=== PATIENT | female | born 1980 | race Caucasian/White ===

== ENCOUNTER 2016-11-17 21:47 | Emergency (ER) | payer BC ==
[~2016-11-17] VITALS: Ht 170.2 cm; Wt 99.4 kg
[2016-11-17 23:26] LABS: HEMATOCRIT 38.1 % (36.0-46.0); MCH 30.5 PG (29.0-34.0); MCHC 34.1 G/DL (30.0-36.0); MCV 89.4 FL (83-99); MEAN PLAT.VOLUME 10.8 uM^3 (9.5-12.4); PLATELET COUNT 189 K/uL (156-360); RBC DIS.WIDTH-CV 12.1 % (11.8-14.6); RBC DIS.WIDTH-SD 39.7 % (39-53); RED BLOOD COUNT 4.26 M/uL (3.80-5.20); WHITE BLOOD COUNT 7.2 K/uL (4.1-10.2)
[2016-11-17 23:38] LABS: CHLORIDE 105 mEq/L (99-109); POTASSIUM 3.6 mEq/L (3.7-5.4); SODIUM 140 mEq/L (136-147)
[2016-11-17 23:40] LABS: GLUCOSE 96 mg/dL (70-99)
[2016-11-17 23:41] LABS: ANION GAP 9 MEQ/L (2-14)
[2016-11-17 23:43] LABS: GFR ESTIMATE (CALCULATED) > 59 mL/min/
[2016-11-17 23:44] LABS: UREA NITROGEN (BUN) 14 mg/dL (9-23)
[2016-11-17 23:49] LABS: ADD MIUA? YES; BILIRUBIN NEGATIVE; BLOOD LARGE; COLOR YELLOW ((YELLOW)); GLUCOSE (STRIP) NEGATIVE; KETONES NEGATIVE; LEUKOCYTES NEGATIVE; NITRITE NEGATIVE; PROTEIN (STRIP) 30; SPECIFIC GRAVITY 1.017 (1.000-1.030); UROBILINOGEN 0.2 MG/DL (0.2-1.0)
[2016-11-18 00:04] LABS: BACTERIA 1+ /HPF; EPITHELIAL CELLS 1+ /HPF; MUCUS 1+ /LPF; RED BLOOD CELLS TNTC /HPF (0-5); UCUL ADDED? YES
[2016-11-18] MEDS ORDERED: FLOMAX0.4 MG PO (00:36)
[2016-11-18] MEDS ORDERED: PERCOCET 5/31 TABLET PO (00:36)
[2016-11-18] MEDS ORDERED: KEFLEX500 MG PO (00:36)
[2016-11-18 01:09] VITALS: BP 145/87
== END 2016-11-18 01:09 | disposition home or self-care (01) ==
LOC: EXP 21:47 → EME 21:47 → EXP 11-18 01:09
DX: N20.0 Calculus of kidney (principal); N39.0 Urinary tract infection, site not specified; R31.9 Hematuria, unspecified; F17.200 Nicotine dependence, unspecified, uncomplicated
CPT/HCPCS: 74176; 80048; 81003; 85027; 99281; 99284; J1885

== ENCOUNTER 2016-11-21 17:36 | Emergency (ER) | payer BC ==
[~2016-11-21] VITALS: Ht 170.2 cm; Wt 98.5 kg
[~2016-11-21 17:36] MED LIST: FLOMAX0.4 MG PO; KEFLEX500 MG PO; PERCOCET 5/31 TABLET PO
[2016-11-21 19:00] LABS: HEMATOCRIT 39.2 % (36.0-46.0); MCH 30.9 PG (29.0-34.0); MCHC 35.2 G/DL (30.0-36.0); MCV 87.7 FL (83-99); MEAN PLAT.VOLUME 10.7 uM^3 (9.5-12.4); PLATELET COUNT 165 K/uL (156-360); RBC DIS.WIDTH-CV 11.8 % (11.8-14.6); RED BLOOD COUNT 4.47 M/uL (3.80-5.20); WHITE BLOOD COUNT 9.9 K/uL (4.1-10.2)
[2016-11-21 19:13] LABS: CHLORIDE 104 mEq/L (99-109); SODIUM 137 mEq/L (136-147)
[2016-11-21 19:14] LABS: GLUCOSE 76 mg/dL (70-99)
[2016-11-21 19:16] LABS: ANION GAP 11 MEQ/L (2-14)
[2016-11-21 19:18] LABS: GFR ESTIMATE (CALCULATED) > 59 mL/min/
[2016-11-21 19:19] LABS: UREA NITROGEN (BUN) 12 mg/dL (9-23)
[2016-11-21 20:14] LABS: ADD MIUA? YES; BILIRUBIN NEGATIVE; BLOOD LARGE; COLOR YELLOW ((YELLOW)); GLUCOSE (STRIP) NEGATIVE; KETONES 80; LEUKOCYTES NEGATIVE; NITRITE NEGATIVE; PROTEIN (STRIP) 100; SPECIFIC GRAVITY 1.026 (1.000-1.030); UROBILINOGEN 0.2 MG/DL (0.2-1.0)
[2016-11-21 20:28] LABS: BACTERIA 1+ /HPF; EPITHELIAL CELLS 3+ /HPF; MUCUS NONE SEEN /LPF; RED BLOOD CELLS TNTC /HPF (0-5); UCUL ADDED? YES; WHITE BLOOD CELLS 0-5 /HPF (0-5)
[2016-11-21] MEDS ORDERED: PERCOCET 5/31 TABLET PO (21:00)
[2016-11-21] MEDS ORDERED: PHENERGAN25 MG PR (21:01)
[2016-11-21 21:23] VITALS: BP 117/63
== END 2016-11-21 21:24 | disposition home or self-care (01) ==
LOC: EME 17:36
DX: N20.0 Calculus of kidney (principal); G89.18 Other acute postprocedural pain; R11.2 Nausea with vomiting, unspecified; F17.200 Nicotine dependence, unspecified, uncomplicated; Z87.442 Personal history of urinary calculi
CPT/HCPCS: 74000; 80048; 81003; 85027; 87086; 99281; 99283; J1885; J2405; J7030

== ENCOUNTER 2016-12-27 09:13 | Day surgery (SDC) | payer BC ==
[~2016-12-27] VITALS: Ht 170.2 cm; Wt 95.2 kg
[~2016-12-27 09:13] MED LIST changes: +ANTIBIOTIC FOR UTI PO; +PHENERGAN25 MG PR; +RAPAFLO8 MG PO
[2016-12-27] MEDS ORDERED: BACTRIM,SEPT1 TABLET PO (09:48)
[2016-12-27 09:50] VITALS: BP 119/72
[2016-12-27 12:07] LABS: INTERNAL CONTROL VALID? YES
[2016-12-27 12:28] VITALS: BP 121/68
[2016-12-27 13:20] VITALS: BP 12/72
== END 2016-12-27 13:21 | disposition home or self-care (01) ==
LOC: SDC 09:13
PROVIDERS: Urology
DX: N20.1 Calculus of ureter (principal); F17.200 Nicotine dependence, unspecified, uncomplicated; Z82.49 Family history of ischemic heart disease and other diseases of the circulatory system
CPT/HCPCS: 74000; 76000; 84703; C2617; J0690; J1100; J1580; J2250; J2405; J2765; J3010